=== PATIENT | female | born 1940 | race Two or more races ===

== ENCOUNTER 2018-07-14 14:59 | Emergency (ER) | payer OTHER ==
[~2018-07-14] VITALS: Ht 165.1 cm; Wt 78.9 kg
[~2018-07-14 14:59] MED LIST: ALDACTONE25 MG PO; ASPIR-LOW81 MG; CEFTIN250 MG/5 M PO; CITALOPRAM HBR40 MG; DALMANE30 MG PO; GLUCOTROL10 MG; IMDUR30 MG; INTEGRA PLUS C1 EACH PO; ISOSORBIDE MONO30 MG PO; LANTUS100 U/ML; LANTUS100 U/ML SQ; LEVOTHROID50 MCG; LEVOXYL25 MCG PO; LIPITOR40 MG; METAMUCIL283 GM; METFORMIN HCL1000 MG PO; MICRONASE5 MG NGT; NEURONTIN300 MG; OXYBUTYNIN CHLOR5 MG; PEPCID40 MG PO; PLAVIX75 MG PO; QUINAPRIL HCL20 MG; QUINAPRIL HCL20 MG PO; SPIRONOLACTONE50 MG PO; SYNTHROID50 MCG; TRAZODONE HCL150 MG PO; VITAMIN B-650 M1; VYTORIN 10/40 T1 TAB PO; ZETIA10 MG; ZOFRAN4 MG PO
[2018-07-14] MEDS ORDERED: ZITHROMAX500 MG PO (21:32)
== END 2018-07-14 22:07 | disposition home or self-care (01) ==
LOC: ER 14:59
DX: J40 Bronchitis, not specified as acute or chronic (principal); J11.1 Influenza due to unidentified influenza virus with other respiratory manifestations

== ENCOUNTER 2019-03-30 22:12 | Emergency (ER) | payer OTHER ==
[~2019-03-30] VITALS: Ht 170.2 cm; Wt 68.0 kg
[~2019-03-30 22:12] MED LIST changes: +ZITHROMAX500 MG PO
== END 2019-03-30 23:34 | disposition home or self-care (01) ==
LOC: ER 22:12
DX: M54.5 Low back pain (principal)

== ENCOUNTER 2019-06-07 19:31 | Emergency (ER) | payer OTHER ==
[~2019-06-07] VITALS: Ht 152.4 cm; Wt 79.4 kg
== END 2019-06-07 23:10 ==
LOC: ER 19:31
DX: R53.1 Weakness (principal)

== ENCOUNTER 2019-07-23 08:05 | Outpatient (CLI) | payer OTHER | END 2019-07-23 08:11 | disposition home or self-care (01) | LOC: RX STUDY 08:05 | DX: R13.19 Other dysphagia (principal) ==

== ENCOUNTER 2019-11-08 14:29 | Emergency (ER) | payer OTHER ==
[~2019-11-08] VITALS: Ht 165.1 cm; Wt 78.9 kg
== END 2019-11-08 19:26 | disposition home or self-care (01) ==
LOC: ER 14:29
DX: M48.8X6 Other specified spondylopathies, lumbar region (principal); M25.551 Pain in right hip; M79.604 Pain in right leg; M54.5 Low back pain; S70.01XS Contusion of right hip, sequela; W18.09XS Striking against other object with subsequent fall, sequela

== ENCOUNTER 2019-12-10 20:02 | Inpatient (IN) | payer OTHER ==
[~2019-12-10] VITALS: Ht 165.1 cm; Wt 77.6 kg
--- NOTE | 2019-12-10 20:13 | NUR ---
FAMILIAR REFIERE AZUCAR BAJA SE JED S/V Y SE UBICA EN AREA DE OBSERVACION
--- NOTE | 2019-12-10 20:36 | NUR ---
SE ORIENTA SOBRE EL TX. SE EXTRAEN MUESTRAS DE ANDREA BAJO MEDIDAS ASEPTICAS SE ROTULAN Y ENVIAN AL LABORATORIO. SE CANALIZA Y ADMINISTRAN MEDICAMENTO MAX ORDEN MEDICA.
--- NOTE | 2019-12-11 08:30 | NUR ---
PACIENTE ALERTA Y ORIENTADA EN COMPANIA DE FAMILIAR CON POCA MOVILIDAD. SE OBSERVA IVF'S PATENTE HAIR DE EDEMA Y ENROJECIMIENTO BAJANDO UN .9NSS @125ML/HR. PACIENTE CON BUEN PATRON RESPIRATORIO Y PIEL TIBIA AL TACTO. PENDIENTE CONSULTA CON DR. TRAVIS DOS SANTOS.
[2019-12-17] MEDS ORDERED: CEFDINIR300 MG PO (15:36)
== END 2019-12-17 16:45 | disposition home or self-care (01) | DRG 698 ==
LOC: ER 20:02 → MEDJ 12-11 13:53
PROVIDERS: ADMIT Internal Medicine
PROC: 0T9B70Z Drainage of Bladder with Drainage Device, Via Natural or Artificial Opening (ICD-10-PCS; 2019-12-11)
PROC: BT43ZZZ Ultrasonography of Bilateral Kidneys (ICD-10-PCS; 2019-12-13)
PROC: B246ZZZ Ultrasonography of Right and Left Heart (ICD-10-PCS; principal; 2019-12-14)
PROC: 4A12X4Z Monitoring of Cardiac Electrical Activity, External Approach (ICD-10-PCS; 2019-12-14)
DX: E11.22 Type 2 diabetes mellitus with diabetic chronic kidney disease (principal); I50.41 Acute combined systolic (congestive) and diastolic (congestive) heart failure; I25.810 Atherosclerosis of coronary artery bypass graft(s) without angina pectoris; F32.1 Major depressive disorder, single episode, moderate; E87.2 Acidosis; G72.81 Critical illness myopathy; N39.0 Urinary tract infection, site not specified; I13.2 Hypertensive heart and chronic kidney disease with heart failure and with stage 5 chronic kidney disease, or end stage renal disease; N18.6 End stage renal disease; E86.0 Dehydration; E87.8 Other disorders of electrolyte and fluid balance, not elsewhere classified; I70.0 Atherosclerosis of aorta; I08.1 Rheumatic disorders of both mitral and tricuspid valves; N20.0 Calculus of kidney; B96.1 Klebsiella pneumoniae [K. pneumoniae] as the cause of diseases classified elsewhere; N17.8 Other acute kidney failure; E03.8 Other specified hypothyroidism; N39.8 Other specified disorders of urinary system; R31.0 Gross hematuria; E87.6 Hypokalemia; E66.01 Morbid (severe) obesity due to excess calories; E11.40 Type 2 diabetes mellitus with diabetic neuropathy, unspecified; Z79.4 Long term (current) use of insulin

== ENCOUNTER 2019-12-30 11:04 | Emergency (ER) | payer OTHER ==
[~2019-12-30] VITALS: Ht 165.1 cm; Wt 77.6 kg
[~2019-12-30 11:04] MED LIST changes: +CEFDINIR300 MG PO
== END 2019-12-30 16:27 | disposition home or self-care (01) ==
LOC: ER 11:04
DX: M51.17 Intervertebral disc disorders with radiculopathy, lumbosacral region (principal)

== ENCOUNTER 2021-01-11 11:53 | Emergency (ER) | payer OTHER ==
[~2021-01-11] VITALS: Ht 165.1 cm; Wt 78.0 kg
[2021-01-11] MEDS ORDERED: LEVOXYL75 MCG PO (16:42)
== END 2021-01-11 17:07 | disposition home or self-care (01) ==
LOC: ER 11:53 → CPU-OBS 12:42 → ER 12:42
DX: I11.0 Hypertensive heart disease with heart failure (principal); I50.9 Heart failure, unspecified; R53.83 Other fatigue; R53.1 Weakness; E03.8 Other specified hypothyroidism; Z03.818 Encounter for observation for suspected exposure to other biological agents ruled out

== ENCOUNTER 2021-03-21 13:02 | Emergency (ER) | payer OTHER ==
[~2021-03-21] VITALS: Ht 165.1 cm; Wt 82.6 kg
[~2021-03-21 13:02] MED LIST changes: +LEVOXYL75 MCG PO
== END 2021-03-21 18:15 | disposition home or self-care (01) ==
LOC: ER 13:02
DX: K52.89 Other specified noninfective gastroenteritis and colitis (principal); R10.13 Epigastric pain; R11.11 Vomiting without nausea; R19.7 Diarrhea, unspecified

== ENCOUNTER 2021-05-04 10:18 | Emergency (ER) | payer OTHER ==
[~2021-05-04] VITALS: Ht 167.6 cm; Wt 83.5 kg
== END 2021-05-04 14:23 | disposition home or self-care (01) ==
LOC: ER 10:18 → CPU-OBS 10:43 → ER 14:23
DX: I16.1 Hypertensive emergency (principal); I10 Essential (primary) hypertension; R06.02 Shortness of breath; R53.83 Other fatigue; Z03.818 Encounter for observation for suspected exposure to other biological agents ruled out

== ENCOUNTER 2021-05-09 11:06 | Outpatient (CLI) | payer OTHER | END 2021-05-09 11:12 | disposition home or self-care (01) | LOC: TOM 11:06 | PROVIDERS: ATTEND Specialist/Technologist, Other Nephrology | DX: I12.9 Hypertensive chronic kidney disease with stage 1 through stage 4 chronic kidney disease, or unspecified chronic kidney disease (principal); N18.32 Chronic kidney disease, stage 3b; N20.0 Calculus of kidney; N13.71 Vesicoureteral-reflux without reflux nephropathy ==

== ENCOUNTER 2021-06-26 14:38 | Emergency (ER) | payer OTHER ==
[~2021-06-26] VITALS: Ht 167.6 cm; Wt 80.7 kg
[2021-06-26] MEDS ORDERED: SURFAK240 M1 PO (21:27)
[2021-06-26] MEDS ORDERED: POLY119PG PO (21:27)
== END 2021-06-26 21:33 | disposition home or self-care (01) ==
LOC: ER 14:38
DX: K59.09 Other constipation (principal)

== ENCOUNTER 2021-06-29 12:41 | Outpatient (CLI) | payer OTHER ==
[~2021-06-29 12:41] MED LIST changes: +POLY119PG PO; +SURFAK240 M1 PO
== END 2021-06-29 12:45 | disposition home or self-care (01) ==
LOC: SONOGRAMA 12:41 → MAMO-SONO 15:00
PROVIDERS: ATTEND Urology
DX: N20.0 Calculus of kidney (principal)

== ENCOUNTER 2022-03-26 10:32 | Outpatient (CLI) | payer OTHER | END 2022-03-26 10:33 | disposition home or self-care (01) | LOC: RAD 10:32 | PROVIDERS: ATTEND Internal Medicine | DX: I11.0 Hypertensive heart disease with heart failure (principal) ==

== ENCOUNTER → 2022-03-26 10:53 | Outpatient (CLI) | payer OTHER | END | disposition home or self-care (01) | LOC: LAB 10:53 | PROVIDERS: ATTEND Internal Medicine | DX: E11.51 Type 2 diabetes mellitus with diabetic peripheral angiopathy without gangrene (principal); I10 Essential (primary) hypertension; E03.9 Hypothyroidism, unspecified; E78.5 Hyperlipidemia, unspecified; K55.20 Angiodysplasia of colon without hemorrhage; R30.9 Painful micturition, unspecified; Z13.29 Encounter for screening for other suspected endocrine disorder; E55.9 Vitamin D deficiency, unspecified; E05.90 Thyrotoxicosis, unspecified without thyrotoxic crisis or storm ==

== ENCOUNTER 2022-04-06 07:18 | Outpatient (CLI) | payer OTHER | END 2022-04-06 07:20 | disposition home or self-care (01) | LOC: NUCLEAR 07:18 | PROVIDERS: ATTEND Internal Medicine Cardiovascular Disease | DX: I25.119 Atherosclerotic heart disease of native coronary artery with unspecified angina pectoris (principal); E11.9 Type 2 diabetes mellitus without complications; I11.9 Hypertensive heart disease without heart failure | CPT/HCPCS: 78452; 93017; A9500; J0153 ==

== ENCOUNTER 2023-12-18 11:04 | Emergency (ER) | payer OTHER ==
[~2023-12-18] VITALS: Ht 160 cm; Wt 78.9 kg
[2023-12-18] MEDS ORDERED: GLIPIZIDE XL5 MG (11:45)
[2023-12-18] MEDS ORDERED: XANAX0.25 MG (11:47)
[2023-12-18] MEDS ORDERED: DUI500 PO (12:18)
== END 2023-12-18 13:58 | disposition home or self-care (01) ==
LOC: ER 11:05
DX: S60.418A Abrasion of other finger, initial encounter (principal); W26.0XXA Contact with knife, initial encounter; Y93.89 Activity, other specified; Y92.018 Other place in single-family (private) house as the place of occurrence of the external cause; L08.9 Local infection of the skin and subcutaneous tissue, unspecified
CPT/HCPCS: 90471; 90714; 96372; 99284; J0696; J1885

== ENCOUNTER 2024-02-16 18:57 | Emergency (ER) | payer OTHER ==
[~2024-02-16] VITALS: Ht 165.1 cm; Wt 82.6 kg
[~2024-02-16 18:57] MED LIST changes: +DUI500 PO; +GLIPIZIDE XL5 MG; +XANAX0.25 MG
[2024-02-16 21:21] LABS: HEMATOCRIT 34.2 % (36.0-45.00); HEMOGLOBIN 11.2 g/dL (12.0-15.00); MEAN CELL VOLUME 75.9 fL (80.00-100.00); MEAN CORPUSCULAR HEMOGLOBIN 24.8 pg (27.00-32.0); MEAN CORPUSCULAR HGB CONC 32.7 g/dl (32.0-36.0); PLATELET COUNT 301 K/uL (150-450); RED BLOOD COUNT 4.51 M/uL (4.00-6.00); RED CELL DISTRIBUTION WIDTH 16.7 % (11.5-14.5)
[2024-02-16 21:58] LABS: ALBUMIN 3.6 gm/dL (3.4-5.0); BILIRUBIN TOTAL 0.41 mg/dL (0.3-1.2); CALCIUM 9.9 mg/dL (8.5-10.1); CREATININE SERUM 1.08 mg/dL (0.55-1.02); GFR 48.45; GLOBULINA 4.3 G/DL (2.4-3.5); POTASSIUM 4.26 mEq/L (3.5-5.1); TOTAL PROTEIN 7.9 gm/dL (6.4-8.2)
[2024-02-16 23:44] LABS: ABG PH 7.483 (7.35-7.45); ABG PO2 102.6 mmHg (80-100); ABG pCO2 34.2 mmHg (35-45); BASE EXCESS 2.1 mmol/l; SaO2 98.4 %; Tco2 26.1 mmol/l
[2024-02-16 23:45] LABS: allen test SATISFACTORY; o2 21 %; puncture site RADIAL LEFT
== END 2024-02-16 23:03 | disposition home or self-care (01) ==
LOC: ER 18:57
PROVIDERS: General Practice
DX: R53.1 Weakness (principal); R53.81 Other malaise; Z20.822 Contact with and (suspected) exposure to COVID-19; I10 Essential (primary) hypertension

== ENCOUNTER 2024-03-13 17:58 | Emergency (ER) | payer OTHER ==
[~2024-03-13] VITALS: Ht 162.6 cm; Wt 78.0 kg
[2024-03-13] MEDS ORDERED: RYBELSUS3 MG PO (18:23)
[2024-03-13] MEDS ORDERED: [UNRECOGNIZED DRUG - OTHER] MC (18:23)
[2024-03-13] MEDS ORDERED: 0.9 % SODIUM CHLORIDE 1,000 ML IV SCH (21:45)
[2024-03-13] MEDS ORDERED: INSULIN REGULAR, HUMAN 1,000 UNIT/10 ML UNITS IV ONE (21:45)
[2024-03-13 21:58] LABS: HEMATOCRIT 40.6 % (36.0-45.00); HEMOGLOBIN 13.4 g/dL (12.0-15.00); MEAN CORPUSCULAR HEMOGLOBIN 25.1 pg (27.00-32.0); PLATELET COUNT 239 K/uL (150-450); RED BLOOD COUNT 5.34 M/uL (4.00-6.00); RED CELL DISTRIBUTION WIDTH 16.6 % (11.5-14.5)
[2024-03-13 22:13] LABS: PH,URINE 5.5 (5.0-8.0); URINE APPEARANCE Turbid; URINE BILIRRUBIN Negative (NEGATIVE); URINE BLOOD Moderate; URINE COLOR Yellow; URINE LEUKOCYTE Moderate; URINE NITRATE Negative; URINE PROTEIN 30 (NEGATIVE); URINE UROBILINOGEN 0.2 E.U./dl
[2024-03-13 22:17] LABS: URINE BACTERIA 8996.2 uL (0.0-1933); URINE EPITHELIAL CELLS 170.2 uL (0.0-38.8); URINE RBC 29.3 uL (0.0-20.8)
[2024-03-13 22:23] LABS: ALBUMIN 4.2 gm/dL (3.4-5.0); BILIRUBIN TOTAL 0.46 mg/dL (0.3-1.2); CALCIUM 9.8 mg/dL (8.5-10.1); CREATININE SERUM 1.72 mg/dL (0.55-1.02); GFR 28.32; GLOBULINA 4.9 G/DL (2.4-3.5); POTASSIUM 4.93 mEq/L (3.5-5.1); TOTAL PROTEIN 9.1 gm/dL (6.4-8.2)
[2024-03-13 22:28] LABS: URINE GLUCOSE >=1000 MG/DL (NEGATIVE); URINE WBC > 5548.3 uL (0.0-23.2)
[2024-03-13] MEDS ORDERED: INSULIN REGULAR, HUMAN 1,000 UNIT/10 ML UNITS SUBCUTANEO ONE (22:45)
[2024-03-13] MEDS ORDERED: MACRODANTIN100 M1 PO (23:48)
== END 2024-03-14 01:07 | disposition home or self-care (01) ==
LOC: ER 17:59
PROVIDERS: General Practice
DX: N39.0 Urinary tract infection, site not specified (principal); E11.65 Type 2 diabetes mellitus with hyperglycemia; Z79.4 Long term (current) use of insulin; Z79.84 Long term (current) use of oral hypoglycemic drugs; I10 Essential (primary) hypertension
CPT/HCPCS: 36415; 96365; 96366; 99284; J1815; J3490

== ENCOUNTER 2024-03-17 07:32 | Outpatient (CLI) | payer OTHER ==
[~2024-03-17 07:32] MED LIST changes: +MACRODANTIN100 M1 PO; +RYBELSUS3 MG PO; +[UNRECOGNIZED DRUG - OTHER] MC
== END 2024-03-17 07:33 | disposition home or self-care (01) ==
LOC: NUCLEAR 07:32
PROVIDERS: ATTEND Internal Medicine
DX: I20.9 Angina pectoris, unspecified (principal); R06.00 Dyspnea, unspecified
CPT/HCPCS: 78452; 93017; A9500

== ENCOUNTER 2024-06-22 11:25 | Outpatient (CLI) | payer OTHER | END 2024-06-22 11:40 | disposition home or self-care (01) | LOC: RAD 11:25 | PROVIDERS: ATTEND Internal Medicine Gastroenterology | DX: K59.00 Constipation, unspecified (principal) ==

== ENCOUNTER 2024-10-08 08:28 | Outpatient (CLI) | payer OTHER | END 2024-10-08 08:33 | disposition home or self-care (01) | LOC: SONOGRAMA 08:28 | PROVIDERS: ATTEND Internal Medicine Gastroenterology | DX: R10.9 Unspecified abdominal pain (principal) ==

== ENCOUNTER 2024-10-28 07:20 | Outpatient (CLI) | payer OTHER | END 2024-10-28 07:21 | disposition home or self-care (01) | LOC: NUCLEAR 07:20 | PROVIDERS: ATTEND Internal Medicine Gastroenterology | DX: E11.43 Type 2 diabetes mellitus with diabetic autonomic (poly)neuropathy (principal) | CPT/HCPCS: 78264; A9541 ==

== ENCOUNTER → 2025-02-07 | Emergency (ER) | payer OTHER ==
[~2025-02-07] VITALS: Ht 167.6 cm; Wt 75.3 kg
[~2025-02-07] MED LIST changes: +MECLIZINE HCL 25 MG TABLET PO STA
[2025-02-07 18:11] LABS: HEMATOCRIT 36.5 % (36.0-45.00); MEAN CELL VOLUME 76.7 fL (80.00-100.00); MEAN CORPUSCULAR HEMOGLOBIN 25.2 pg (27.00-32.0); MEAN CORPUSCULAR HGB CONC 32.9 g/dl (32.0-36.0); PLATELET COUNT 277 K/uL (150-450); RED BLOOD COUNT 4.76 M/uL (4.00-6.00); RED CELL DISTRIBUTION WIDTH 16.3 % (11.5-14.5)
[2025-02-07 18:43] LABS: BILIRUBIN TOTAL 0.35 mg/dL (0.3-1.2); CALCIUM 9.8 mg/dL (8.5-10.1); CREATININE SERUM 1.54 mg/dL (0.55-1.02); GFR 32.09; GLOBULINA 5.4 G/DL (2.4-3.5); POTASSIUM 4.47 mEq/L (3.5-5.1); TOTAL PROTEIN 9.4 gm/dL (6.4-8.2)
== END | disposition left against medical advice (07) ==
LOC: ER 12:44
PROVIDERS: General Practice
DX: R42 Dizziness and giddiness (principal)

== ENCOUNTER → 2025-02-08 | Emergency (ER) | payer OTHER ==
[~2025-02-08] VITALS: Ht 162.6 cm; Wt 72.6 kg
[~2025-02-08] MED LIST changes: +MECLIZINE HCL 25 MG TABLET PO ONE; -MECLIZINE HCL 25 MG TABLET PO STA
== END | disposition home or self-care (01) ==
LOC: ER 07:39
DX: R42 Dizziness and giddiness (principal); R51.9 Headache, unspecified; M54.9 Dorsalgia, unspecified; I10 Essential (primary) hypertension; E03.8 Other specified hypothyroidism; E11.9 Type 2 diabetes mellitus without complications; Z79.4 Long term (current) use of insulin; Z79.84 Long term (current) use of oral hypoglycemic drugs

== ENCOUNTER 2025-03-04 16:07 | Inpatient (IN) | payer OTHER ==
[~2025-03-04] VITALS: Ht 160 cm; Wt 73.0 kg
[~2025-03-04 16:07] MED LIST changes: -MECLIZINE HCL 25 MG TABLET PO ONE
--- NOTE | 2025-03-04 17:44 | NUR ---
PTE ALERTA Y ORIENTADA X3 REFIERE VENIR A MARZENA POR REFERIDO DEL DR JOANA FARIA EL CUAL ENTIENDE QUE LA PTE SE ENCUENTRA DESHIDRATADA Y POSIBLEMENTE CHF PTE TIENE A LA MANO REFERIDO MEDICO CON VARIAS ORDENES. PTE EXPRESA SENTIR MAREOS Y DEBILIDAD. SE MIDEN S/V Y UBICA.
--- NOTE | 2025-03-04 18:09 | NUR ---
SE REALIZA EKG Y EL MISMO ES EVALUADO POR LA DRA BENZ Y LA MISAM REFIERE QUE SE CONECTE A PTE A MONITOR CARDIACO.
[2025-03-04 18:56] LABS: ABG PH 7.547 (7.35-7.45); ABG PO2 93.4 mmHg (80-100); ABG pCO2 28.3 mmHg (35-45); BASE EXCESS 2.7 mmol/l; SaO2 98.3 %; Tco2 24.9 mmol/l
--- NOTE | 2025-03-04 19:11 | NUR ---
SE ORIENTA PTE SOBRE TX, REFIERE ENTENDER Y ACEPTAR. SE LE JED MUESTRAS DE LABORATORIO, RT GOULD YOMAIRA MUESTRA DE ABG, TODO BAJO MEDIDAS ASEPTICAS. PTE ENTREGA MUESTRA DE U/A Y PERSONAL DE ESCOLTA TRASLADA PTE A XRAYS.
[2025-03-04 19:13] LABS: HEMATOCRIT 32.8 % (36.0-45.00); HEMOGLOBIN 10.8 g/dL (12.0-15.00); MEAN CELL VOLUME 76.1 fL (80.00-100.00); MEAN CORPUSCULAR HGB CONC 32.9 g/dl (32.0-36.0); PLATELET COUNT 284 K/uL (150-450); RED BLOOD COUNT 4.31 M/uL (4.00-6.00); RED CELL DISTRIBUTION WIDTH 16.1 % (11.5-14.5); URINE APPEARANCE Turbid; URINE BILIRRUBIN Negative (NEGATIVE); URINE BLOOD Small; URINE COLOR Yellow; URINE GLUCOSE Negative (NEGATIVE); URINE KETONE Trace (NEGATIVE); URINE LEUKOCYTE Large; URINE NITRATE Negative
[2025-03-04 19:16] LABS: URINE EPITHELIAL CELLS 90.8 uL (0.0-38.8); URINE RBC 9.4 uL (0.0-20.8); URINE WBC 4989.3 uL (0.0-23.2)
[2025-03-04 19:33] LABS: URINE BACTERIA > 9821.5 uL (0.0-1933); URINE CAST 0.29 uL (0.0-1.40); URINE PROTEIN 100 (NEGATIVE)
[2025-03-04 19:35] LABS: CALCIUM 9.5 mg/dL (8.5-10.1); CREATININE SERUM 1.19 mg/dL (0.55-1.02); GFR 43.21; POTASSIUM 3.99 mEq/L (3.5-5.1)
[2025-03-04 19:37] LABS: INR 1.05; PARTIAL THROMBOPLASTIN TIME 27.9 SECONDS (22.0-34.0); PROTHROMBIN TIME 11.4 SECONDS (9.0-11.5)
[2025-03-04 19:53] LABS: allen test SATISFACTORY; o2 21 %; puncture site RADIAL LEFT
[2025-03-04] MEDS ORDERED: CEFTRIAXONE SODIUM 2,000 MG VIAL IV ONE (20:15)
[2025-03-04] MEDS ORDERED: CEFTRIAXONE SODIUM 2,000 MG VIAL ONE (20:35)
[2025-03-04] MEDS ORDERED: IPRATROPIUM BROMIDE 0.5 MG/2.5 ML AMPUL.NEB IH SCH (21:09)
[2025-03-04] MEDS ORDERED: 0.9 % SODIUM CHLORIDE 1,000 ML IV SCH (21:15)
[2025-03-04] MEDS ORDERED: ACETAMINOPHEN 500 MG GEL..CAP PO PRN (21:15)
[2025-03-04] MEDS ORDERED: IPRATROPIUM BROMIDE 0.5 MG/2.5 ML AMPUL.NEB IH ONE (22:23)
[2025-03-04] MEDS ORDERED: LOSARTAN POTASSIUM 50 MG TABLET PO SCH (23:24)
[2025-03-05 00:32] VITALS: BP 116/61; O2SAT 97
[2025-03-05 05:10] VITALS: BP 112/51; O2SAT 96
[2025-03-05] MEDS ORDERED: LEVOTHYROXINE SODIUM 50 MCG TABLET PO SCH (06:00)
[2025-03-05 08:00] VITALS: BP 127/76; O2SAT 96
[2025-03-05] MEDS ORDERED: CEFTRIAXONE SODIUM 2,000 MG in 0.9 % SODIUM CHLORIDE 100 ML IV SCH (09:00)
[2025-03-05] MEDS ORDERED: FAMOTIDINE/PF 20 MG in 0.9 % SODIUM CHLORIDE 8 ML IV PUSH SCH (09:00)
[2025-03-05] MEDS ORDERED: ATORVASTATIN CALCIUM 20 MG TABLET PO SCH (09:00)
[2025-03-05] MEDS ORDERED: CLOPIDOGREL BISULFATE 75 MG TABLET PO SCH (09:00)
[2025-03-05 16:00] VITALS: BP 160/78; O2SAT 99
[2025-03-05] MEDS ORDERED: ALPRAzolam 0.25 MG TABLET PO SCH (21:00)
[2025-03-06 02:51] VITALS: BP 113/69; O2SAT 95
[2025-03-06 07:50] LABS: ALBUMIN 3.1 gm/dL (3.4-5.0); BILIRUBIN TOTAL 0.28 mg/dL (0.3-1.2); CREATININE SERUM 1.09 mg/dL (0.55-1.02); GFR 47.82; GLOBULINA 3.8 G/DL (2.4-3.5); POTASSIUM 4.17 mEq/L (3.5-5.1); TOTAL PROTEIN 6.9 gm/dL (6.4-8.2)
[2025-03-06 08:05] LABS: HEMATOCRIT 30.1 % (36.0-45.00); HEMOGLOBIN 9.8 g/dL (12.0-15.00); MEAN CORPUSCULAR HEMOGLOBIN 24.9 pg (27.00-32.0); MEAN CORPUSCULAR HGB CONC 32.7 g/dl (32.0-36.0); PLATELET COUNT 251 K/uL (150-450); RED BLOOD COUNT 3.95 M/uL (4.00-6.00); RED CELL DISTRIBUTION WIDTH 15.9 % (11.5-14.5)
[2025-03-06] MEDS ORDERED: IRON/V.C/V.B12/FOLIC A/VIT. E 1 CAPL CAPLET PO SCH (09:00)
[2025-03-06] MEDS ORDERED: EPOETIN ALFA-EPBX 10,000 UNIT/ML VIAL (Retacrit) SUBCUTANEO SCH (09:00)
[2025-03-06 09:06] VITALS: BP 119/66; O2SAT 98
[2025-03-06 16:00] VITALS: BP 148/77; O2SAT 98
[2025-03-07 00:56] VITALS: BP 146/81; O2SAT 97
[2025-03-07 08:47] VITALS: BP 132/72; O2SAT 95
[2025-03-07 16:00] VITALS: BP 152/78; O2SAT 98
[2025-03-08 01:42] VITALS: BP 131/75; O2SAT 97
[2025-03-08 08:41] VITALS: BP 122/64
[2025-03-08 12:38] LABS: HEMATOCRIT 28.9 % (36.0-45.00); MEAN CELL VOLUME 76.1 fL (80.00-100.00); MEAN CORPUSCULAR HGB CONC 32.8 g/dl (32.0-36.0); PLATELET COUNT 227 K/uL (150-450); RED CELL DISTRIBUTION WIDTH 15.7 % (11.5-14.5)
[2025-03-08 12:53] LABS: HEMOGLOBIN 9.5 g/dL (12.0-15.00)
[2025-03-08 16:16] VITALS: BP 184/92; O2SAT 97
[2025-03-08 18:53] VITALS: BP 142/83
[2025-03-09 01:07] VITALS: BP 144/77; O2SAT 96
[2025-03-09 05:09] LABS: CALCIUM 9.2 mg/dL (8.5-10.1); CREATININE SERUM 0.79 mg/dL (0.55-1.02); GFR 69.33; POTASSIUM 3.68 mEq/L (3.5-5.1)
[2025-03-09] MEDS ORDERED: FAMOTIDINE/PF 20 MG/2 ML VIAL ONE (08:20)
[2025-03-09 08:25] VITALS: BP 114/54
== END 2025-03-09 11:37 | disposition home or self-care (01) | DRG 690 ==
LOC: ER 16:09 → SURG 21:39 → SEC-K 21:39 → SURG 03-05 04:33 → MEDI 03-05 15:23
PROVIDERS: Emergency Medicine; Internal Medicine; ADMIT Student in an Organized Health Care Education/Training Program; ATTEND Student in an Organized Health Care Education/Training Program
PROC: B246ZZZ Ultrasonography of Right and Left Heart (ICD-10-PCS; principal; 2025-03-04)
PROC: 3E0F7GC Introduction of Other Therapeutic Substance into Respiratory Tract, Via Natural or Artificial Opening (ICD-10-PCS; 2025-03-04)
DX: N39.0 Urinary tract infection, site not specified (principal); N17.8 Other acute kidney failure; I11.0 Hypertensive heart disease with heart failure; I50.9 Heart failure, unspecified; E03.9 Hypothyroidism, unspecified; R06.02 Shortness of breath

== ENCOUNTER 2025-03-15 13:25 | Outpatient (CLI) | payer OTHER | END 2025-03-15 13:31 | disposition home or self-care (01) | LOC: RAD 13:25 | PROVIDERS: ATTEND Internal Medicine | DX: R06.00 Dyspnea, unspecified (principal) ==

== ENCOUNTER 2025-06-09 19:13 | Emergency (ER) | payer OTHER ==
[~2025-06-09] VITALS: Ht 160 cm; Wt 75.3 kg
[2025-06-09 20:38] LABS: BASO % 0.4 % (0.1-1.2); EOS # 0.09 (0.04-0.54); EOS % 0.9 % (0.7-7.0); LYMPH # 3.49 (1.18-3.74); LYMPH % 36.4 % (19.3-53.1); MEAN PLATELET VOLUME 10.70 fl (9.4-12.4); MONO # 1.14 (0.24-0.82); MONO % 11.9 % (4.7-12.5); NEUT # 4.81 (1.56-6.13); NEUT % 50.1 % (34.0-71.1); RED CELL DISTRIBUTION WIDTH 16.1 % (11.6-14.4)
[2025-06-09 20:45] LABS: COVID-19 AG NEGATIVE (NEGATIVE)
[2025-06-09 21:02] LABS: INR 1.05
[2025-06-09 21:11] LABS: ALT/SGPT 20.0 U/L (12-78); AST/SGOT 13.0 U/L (15-37)
[2025-06-09 21:12] LABS: BILIRUBIN TOTAL 0.34 mg/dL (0.3-1.2); GFR 29.43
[2025-06-09 21:19] LABS: BUN CREA RATIO 18.0 (7.0-25.0); CREATININE SERUM 1.66 mg/dL (0.55-1.02)
[2025-06-09 21:20] LABS: GLOBULINA 4.5 G/DL (2.4-3.5)
[2025-06-09 21:21] LABS: OSMOLALITY SERUM 286.0 MOSM/KG (275-295)
[2025-06-09 21:21] LABS: ABG PH 7.410 (7.35-7.45); ABG PO2 80.6 mmHg (80-100); BICARBONATE 24.5 mmol/l (23-25)
[2025-06-09 21:22] LABS: URINE APPEARANCE Turbid; URINE BILIRRUBIN Negative (NEGATIVE); URINE BLOOD Small; URINE COLOR Yellow; URINE KETONE Negative (NEGATIVE); URINE LEUKOCYTE Moderate; URINE NITRATE Negative; URINE UROBILINOGEN 0.2 E.U./dl
[2025-06-09 21:23] LABS: URINE BACTERIA 9448.7 uL (0.0-1933); URINE CAST 1.46 uL (0.0-1.40); URINE EPITHELIAL CELLS 117.3 uL (0.0-38.8); URINE RBC 9.3 uL (0.0-20.8); URINE WBC 2560.5 uL (0.0-23.2)
[2025-06-09 21:27] LABS: GLUCOSE FASTING 515.0 mg/dL (65-100)
[2025-06-09] MEDS ORDERED: 0.9 % SODIUM CHLORIDE 500 ML IV ONE (21:30)
[2025-06-09] MEDS ORDERED: INSULIN REGULAR, HUMAN 1,000 UNIT/10 ML UNITS IV ONE ×2 (21:30→23:15)
[2025-06-09 21:33] LABS: o2 21 %
[2025-06-09 21:42] LABS: URINE GLUCOSE >=1000 MG/DL (NEGATIVE); URINE PROTEIN 100 (NEGATIVE)
[2025-06-09] MEDS ORDERED: INSULIN GLARGINE,HUM.REC.ANLOG 1,000 UNITS/10 ML UNITS SUBCUTANEO ONE (23:15)
[2025-06-09] MEDS ORDERED: PEPCID AC20 MG PO (23:51)
[2025-06-09] MEDS ORDERED: BACTRIM DS TAB1 EACH PO (23:51)
== END 2025-06-10 00:07 | disposition home or self-care (01) ==
LOC: ER 19:20
PROVIDERS: General Practice
DX: N39.0 Urinary tract infection, site not specified (principal); R06.02 Shortness of breath; Z20.822 Contact with and (suspected) exposure to COVID-19; I10 Essential (primary) hypertension; E03.8 Other specified hypothyroidism; E11.9 Type 2 diabetes mellitus without complications; Z79.84 Long term (current) use of oral hypoglycemic drugs
CPT/HCPCS: 71046; 82803; 93005; 96365; 96366; 99283; J1815 ×2; J7042

== ENCOUNTER 2025-09-11 14:56 | Emergency (ER) | payer OTHER ==
[~2025-09-11] VITALS: Ht 162.6 cm; Wt 83.5 kg
[~2025-09-11 14:56] MED LIST changes: +BACTRIM DS TAB1 EACH PO; +PEPCID AC20 MG PO
[2025-09-11] MEDS ORDERED: 0.9 % SODIUM CHLORIDE 1,000 ML IV STA (17:06)
[2025-09-11] MEDS ORDERED: FAMOTIDINE/PF 20 MG/2 ML VIAL IV STA (17:07)
[2025-09-11] MEDS ORDERED: ONDANSETRON HCL 2 MG/ML VIAL IV STA (17:07)
[2025-09-11] MEDS ORDERED: INSULIN REGULAR, HUMAN 1,000 UNIT/10 ML UNITS IV STA ×3 (17:07→23:16)
[2025-09-11] MEDS ORDERED: ONDANSETRON HCL 2 MG/ML VIAL ONE (17:12)
[2025-09-11] MEDS ORDERED: FAMOTIDINE/PF 20 MG/2 ML VIAL ONE (17:12)
[2025-09-11 18:16] LABS: BASO % 0.6 % (0.1-1.2); EOS # 0.05 (0.04-0.54); EOS % 0.7 % (0.7-7.0); LYMPH # 3.10 (1.18-3.74); LYMPH % 44.5 % (19.3-53.1); MEAN PLATELET VOLUME 11.70 fl (9.4-12.4); MONO # 0.81 (0.24-0.82); MONO % 11.6 % (4.7-12.5); NEUT # 2.94 (1.56-6.13); NEUT % 42.2 % (34.0-71.1); RED CELL DISTRIBUTION WIDTH 14.8 % (11.6-14.4)
[2025-09-11 18:45] LABS: BUN CREA RATIO 10.0 (7.0-25.0); CREATININE SERUM 1.54 mg/dL (0.55-1.02); GFR 32.09
[2025-09-11 19:26] LABS: OSMOLALITY SERUM 281.0 MOSM/KG (275-295)
[2025-09-11 19:27] LABS: GLUCOSE FASTING 518.0 mg/dL (65-100)
[2025-09-11] MEDS ORDERED: INSULIN REGULAR, HUMAN 1,000 UNIT/10 ML UNITS IV ONE (19:45)
[2025-09-11 20:24] LABS: URINE APPEARANCE Cloudy; URINE BILIRRUBIN Negative (NEGATIVE); URINE BLOOD Small; URINE COLOR Yellow; URINE KETONE Negative (NEGATIVE); URINE LEUKOCYTE Small; URINE NITRATE Negative; URINE UROBILINOGEN 0.2 E.U./dl
[2025-09-11 20:28] LABS: URINE BACTERIA 2535.3 uL (0.0-1933); URINE EPITHELIAL CELLS 18.9 uL (0.0-38.8); URINE RBC 8.3 uL (0.0-20.8); URINE WBC 1899.8 uL (0.0-23.2)
[2025-09-11 21:25] LABS: URINE CAST 0.58 uL (0.0-1.40); URINE GLUCOSE >=1000 MG/DL (NEGATIVE); URINE PROTEIN 100 (NEGATIVE)
[2025-09-11 21:28] LABS: URINE YEAST FEW /hpf
[2025-09-12] MEDS ORDERED: CEFTRIAXONE SODIUM 2,000 MG VIAL IV STA (00:19)
[2025-09-12] MEDS ORDERED: CEFTRIAXONE SODIUM 2,000 MG VIAL ONE (00:29)
[2025-09-12] MEDS ORDERED: INSULIN REGULAR, HUMAN 1,000 UNIT/10 ML UNITS IV STA (01:46)
[2025-09-12] MEDS ORDERED: KETOROLAC TROMETHAMINE 30 MG VIAL IM STA (05:41)
[2025-09-12] MEDS ORDERED: ORPHENADRINE CITRATE 30 MG/ML AMPUL IM STA (05:42)
[2025-09-12] MEDS ORDERED: ORPHENADRINE CITRATE 30 MG/ML AMPUL ONE (06:12)
[2025-09-12] MEDS ORDERED: KETOROLAC TROMETHAMINE 30 MG VIAL ONE (06:12)
== END 2025-09-12 11:10 | disposition home or self-care (01) ==
LOC: ER 14:56
PROVIDERS: General Practice
DX: E11.65 Type 2 diabetes mellitus with hyperglycemia (principal); N39.0 Urinary tract infection, site not specified; S00.93XA Contusion of unspecified part of head, initial encounter; W18.39XA Other fall on same level, initial encounter; Y93.89 Activity, other specified; Y92.238 Other place in hospital as the place of occurrence of the external cause; Y99.9 Unspecified external cause status
CPT/HCPCS: 36415; 70450; 72125; 73070; 93005; 96365; 96366; 96372; 99284; J0696; J1885; J2360; J2405; J3490

== ENCOUNTER 2025-09-14 11:59 | Inpatient (IN) | payer OTHER ==
[~2025-09-14] VITALS: Ht 162.6 cm; Wt 83.5 kg
[2025-09-14] MEDS ORDERED: FEOSOL325 MG PO (12:47)
[2025-09-14] MEDS ORDERED: RANOLAZINE (12:48)
[2025-09-14] MEDS ORDERED: TIROSINT13 MCG PO (12:48)
[2025-09-14] MEDS ORDERED: COZAAR50 MG PO (12:49)
[2025-09-14] MEDS ORDERED: ZETIA10 MG PO (12:49)
[2025-09-14] MEDS ORDERED: PLAVIX75 MG (12:49)
[2025-09-14] MEDS ORDERED: CITALOPRAM HBR40 MG PO (12:50)
[2025-09-14] MEDS ORDERED: LANTUS SOL100 UNIT/1 (12:50)
[2025-09-14] MEDS ORDERED: ACID REDUCER20 M1 PO (12:50)
[2025-09-14] MEDS ORDERED: CEFTRIAXONE SODIUM 1,000 MG VIAL ONE (12:59)
[2025-09-14] MEDS ORDERED: INSULIN LISPRO 1,000 UNIT/10 ML UNITS SUBCUTANEO PRN (13:00)
[2025-09-14] MEDS ORDERED: DEXTROSE 50 % IN WATER 0.5 G/ML DISP.SYRIN IV PRN (13:00)
[2025-09-14] MEDS ORDERED: RINGERS SOLUTION,LACTATED 1,000 ML IV SCH (13:00)
[2025-09-14 14:53] VITALS: BP 100/60
[2025-09-14 15:29] LABS: BASO % 0.5 % (0.1-1.2); EOS # 0.06 (0.04-0.54); EOS % 1.0 % (0.7-7.0); LYMPH # 2.18 (1.18-3.74); LYMPH % 36.2 % (19.3-53.1); MEAN PLATELET VOLUME 11.20 fl (9.4-12.4); MONO # 0.65 (0.24-0.82); MONO % 10.8 % (4.7-12.5); NEUT # 3.06 (1.56-6.13); NEUT % 50.8 % (34.0-71.1); RED CELL DISTRIBUTION WIDTH 14.9 % (11.6-14.4)
[2025-09-14 15:38] LABS: ERYTHROCYTE SEDIMENTATION RATE 116 mm/hr (0-30)
[2025-09-14 15:53] LABS: ALT/SGPT 19.0 U/L (12-78); AST/SGOT 19.0 U/L (15-37); BILIRUBIN TOTAL 0.36 mg/dL (0.3-1.2); BUN CREA RATIO 10.0 (7.0-25.0); CREATININE SERUM 1.57 mg/dL (0.55-1.02); GFR 31.39; GLOBULINA 4.0 G/DL (2.4-3.5); LDH 163.0 U/L (84-246)
[2025-09-14 15:56] LABS: INR 1.0
[2025-09-14 16:02] LABS: OSMOLALITY SERUM 284.0 MOSM/KG (275-295)
[2025-09-14] MEDS ORDERED: INSULIN REGULAR, HUMAN 1,000 UNIT/10 ML UNITS ONE (16:02)
[2025-09-14 16:04] LABS: GLUCOSE FASTING 528.0 mg/dL (65-100)
[2025-09-14] MEDS ORDERED: INSULIN REGULAR, HUMAN 1,000 UNIT/10 ML UNITS IV ONE (16:15)
[2025-09-14 16:35] LABS: URINE APPEARANCE Cloudy; URINE BILIRRUBIN Negative (NEGATIVE); URINE COLOR Yellow; URINE KETONE Trace (NEGATIVE); URINE LEUKOCYTE Small; URINE NITRATE Negative; URINE PROTEIN 30 (NEGATIVE); URINE UROBILINOGEN 0.2 E.U./dl
[2025-09-14 16:39] LABS: URINE BACTERIA 661.2 uL (0.0-1933); URINE EPITHELIAL CELLS 11.5 uL (0.0-38.8); URINE RBC 3.0 uL (0.0-20.8); URINE WBC 2880.3 uL (0.0-23.2)
[2025-09-14 16:48] LABS: URINE BLOOD Traces; URINE CAST 0.00 uL (0.0-1.40); URINE GLUCOSE >=1000 MG/DL (NEGATIVE)
[2025-09-14 16:58] LABS: COVID-19 AG NEGATIVE (NEGATIVE)
[2025-09-14 18:00] VITALS: BP 154/79
[2025-09-15 02:10] VITALS: BP 169/74; O2SAT 95
[2025-09-15] MEDS ORDERED: LEVOTHYROXINE SODIUM 50 MCG TABLET PO SCH (06:00)
[2025-09-15 06:47] LABS: BUN CREA RATIO 13.0 (7.0-25.0); CREATININE SERUM 1.27 mg/dL (0.55-1.02); GFR 40.09; OSMOLALITY SERUM 285.0 MOSM/KG (275-295)
[2025-09-15 06:48] LABS: GLUCOSE FASTING 387.0 mg/dL (65-100)
[2025-09-15] MEDS ORDERED: PANTOPRAZOLE SODIUM 40 MG TABLET.DR PO SCH (09:00)
[2025-09-15] MEDS ORDERED: ASPIRIN 81 MG TAB.CHEW PO SCH (09:00)
[2025-09-15] MEDS ORDERED: IRON/V.C/V.B12/FOLIC A/VIT. E 1 CAPL CAPLET PO SCH (09:00)
[2025-09-15] MEDS ORDERED: ATORVASTATIN CALCIUM 40 MG TABLET PO SCH (09:00)
[2025-09-15] MEDS ORDERED: LOSARTAN POTASSIUM 50 MG TABLET PO SCH (09:00)
[2025-09-15 09:23] VITALS: BP 120/73
[2025-09-15] MEDS ORDERED: INSULIN GLARGINE,HUM.REC.ANLOG 1,000 UNITS/10 ML UNITS SUBCUTANEO STA (09:39)
[2025-09-15] MEDS ORDERED: INSULIN LISPRO 1,000 UNIT/10 ML UNITS SUBCUTANEO SCH (12:00)
[2025-09-15 17:41] VITALS: BP 147/58
[2025-09-15] MEDS ORDERED: DEXTROSE 50 % IN WATER 0.5 G/ML DISP.SYRIN IV PRN (18:00)
[2025-09-16 03:34] VITALS: BP 123/76; O2SAT 97
[2025-09-16] MEDS ORDERED: INSULIN LISPRO 1,000 UNIT/10 ML UNITS SUBCUTANEO SCH (08:00)
[2025-09-16] MEDS ORDERED: INSULIN GLARGINE,HUM.REC.ANLOG 1,000 UNITS/10 ML UNITS SUBCUTANEO SCH ×2 (09:00)
[2025-09-16 09:45] VITALS: BP 127/75; O2SAT 98
[2025-09-16] MEDS ORDERED: 0.9 % SODIUM CHLORIDE 1,000 ML IV SCH (19:31)
[2025-09-16] MEDS ORDERED: FAMOTIDINE/PF 20 MG/2 ML VIAL IV PUSH STA (19:35)
[2025-09-16] MEDS ORDERED: ONDANSETRON HCL 2 MG/ML VIAL IV STA (19:35)
[2025-09-16] MEDS ORDERED: ONDANSETRON HCL 2 MG/ML VIAL IV PRN (19:45)
[2025-09-16 20:56] VITALS: BP 130/70; O2SAT 97
[2025-09-17 02:39] VITALS: BP 112/58; O2SAT 94
[2025-09-17] MEDS ORDERED: FAMOTIDINE/PF 20 MG/2 ML VIAL IV PUSH SCH (05:00)
[2025-09-17 06:56] LABS: BASO % 0.8 % (0.1-1.2); EOS # 0.16 (0.04-0.54); EOS % 2.5 % (0.7-7.0); LYMPH # 3.02 (1.18-3.74); LYMPH % 47.6 % (19.3-53.1); MEAN PLATELET VOLUME 10.90 fl (9.4-12.4); MONO # 0.86 (0.24-0.82); NEUT # 2.23 (1.56-6.13); NEUT % 35.2 % (34.0-71.1); RED CELL DISTRIBUTION WIDTH 15.1 % (11.6-14.4)
[2025-09-17 07:07] LABS: MONO % 13.6 % (4.7-12.5)
[2025-09-17 07:18] LABS: BUN CREA RATIO 14.0 (7.0-25.0); CREATININE SERUM 1.19 mg/dL (0.55-1.02); GFR 43.21; OSMOLALITY SERUM 282.0 MOSM/KG (275-295)
[2025-09-17 07:19] LABS: GLUCOSE FASTING 313.0 mg/dL (65-100)
[2025-09-17] MEDS ORDERED: INSULIN LISPRO 1,000 UNIT/10 ML UNITS SUBCUTANEO SCH (08:00)
[2025-09-17] MEDS ORDERED: INSULIN GLARGINE,HUM.REC.ANLOG 1,000 UNITS/10 ML UNITS SUBCUTANEO SCH (09:00)
[2025-09-17 09:14] VITALS: BP 96/58; O2SAT 98
[2025-09-17 17:32] VITALS: BP 130/70
[2025-09-18 01:31] VITALS: BP 132/71; O2SAT 96
[2025-09-18 08:57] VITALS: BP 144/95; O2SAT 96
[2025-09-18] MEDS ORDERED: MetFORMIN HCL 1000 MG TABLET PO SCH (09:00)
[2025-09-18 11:06] LABS: T4 TOTAL 4.98 UG/DL (4.8-13.9)
[2025-09-18 11:13] LABS: TSH 6.06 uIU/mL (0.358-3.74)
[2025-09-18 21:33] VITALS: BP 150/72
[2025-09-19 02:02] VITALS: BP 149/71; O2SAT 97
[2025-09-19 09:21] VITALS: BP 158/80; O2SAT 95
[2025-09-20 03:33] VITALS: BP 130/75; O2SAT 96
[2025-09-20] MEDS ORDERED: INSULIN LISPRO 1,000 UNIT/10 ML UNITS SUBCUTANEO SCH (08:00)
[2025-09-20 08:23] VITALS: BP 128/70
[2025-09-20 16:20] VITALS: BP 103/64; O2SAT 98
[2025-09-20] MEDS ORDERED: LIPITOR40 M1 PO (18:07)
[2025-09-20] MEDS ORDERED: ADULT ASPIRIN81 MG PO (18:08)
[2025-09-20] MEDS ORDERED: COZAAR50 MG PO (18:08)
[2025-09-20] MEDS ORDERED: FAMOTIDINE20 MG PO (18:09)
[2025-09-20] MEDS ORDERED: PANTOPRAZOLE SO40 MG PO (18:09)
[2025-09-20] MEDS ORDERED: Ferro-Plex CAPLET PO (18:10)
[2025-09-21] MEDS ORDERED: LEVOTHYROXINE SODIUM 75 MCG TABLET PO SCH (06:00)
== END 2025-09-20 19:51 | disposition home or self-care (01) | DRG 638 ==
LOC: ER 11:59 → SEC-K 13:48 → MEDI 13:48
PROVIDERS: General Practice; Internal Medicine Endocrinology, Diabetes & Metabolism; ADMIT Internal Medicine Hematology & Oncology; ATTEND Internal Medicine Hematology & Oncology
PROC: B345ZZZ Ultrasonography of Bilateral Common Carotid Arteries (ICD-10-PCS; principal; 2025-09-14)
PROC: B348ZZZ Ultrasonography of Bilateral Internal Carotid Arteries (ICD-10-PCS; 2025-09-14)
PROC: B246ZZZ Ultrasonography of Right and Left Heart (ICD-10-PCS; 2025-09-14)
DX: E11.65 Type 2 diabetes mellitus with hyperglycemia (principal); E87.1 Hypo-osmolality and hyponatremia; I25.810 Atherosclerosis of coronary artery bypass graft(s) without angina pectoris; D46.9 Myelodysplastic syndrome, unspecified; E86.0 Dehydration; D50.8 Other iron deficiency anemias; R42 Dizziness and giddiness; I13.10 Hypertensive heart and chronic kidney disease without heart failure, with stage 1 through stage 4 chronic kidney disease, or unspecified chronic kidney disease; E11.22 Type 2 diabetes mellitus with diabetic chronic kidney disease; N18.31 Chronic kidney disease, stage 3a; D63.1 Anemia in chronic kidney disease; F41.0 Panic disorder [episodic paroxysmal anxiety]; E03.9 Hypothyroidism, unspecified; Z79.4 Long term (current) use of insulin; Z79.84 Long term (current) use of oral hypoglycemic drugs; Z95.1 Presence of aortocoronary bypass graft; Z87.891 Personal history of nicotine dependence

== ENCOUNTER 2025-10-20 11:10 | Emergency (ER) | payer OTHER ==
[~2025-10-20] VITALS: Ht 160 cm; Wt 74.4 kg
[~2025-10-20 11:10] MED LIST changes: +ACID REDUCER20 M1 PO; +ADULT ASPIRIN81 MG PO; +CITALOPRAM HBR40 MG PO; +COZAAR50 MG PO; +FAMOTIDINE20 MG PO; +FEOSOL325 MG PO; +Ferro-Plex CAPLET PO; +LANTUS SOL100 UNIT/1; +LIPITOR40 M1 PO; +PANTOPRAZOLE SO40 MG PO; +PLAVIX75 MG; +RANOLAZINE; +TIROSINT13 MCG PO; +ZETIA10 MG PO
[2025-10-20 12:18] VITALS: BP 143/66; O2SAT 99
[2025-10-20] MEDS ORDERED: PLAVIX75 MG PO (12:18)
[2025-10-20] MEDS ORDERED: KETOROLAC TROMETHAMINE 60 MG VIAL IM ONE ×2 (13:00→13:47)
[2025-10-20] MEDS ORDERED: ORPHENADRINE CITRATE 30 MG/ML AMPUL IM ONE (13:00)
[2025-10-20] MEDS ORDERED: ORPHENADRINE CITRATE 30 MG/ML AMPUL ONE (13:47)
[2025-10-20] MEDS ORDERED: NORFLEX100MG PO (14:59)
== END 2025-10-20 15:53 | disposition home or self-care (01) ==
LOC: ER 11:10
DX: M62.838 Other muscle spasm (principal); M54.59 Other low back pain; I10 Essential (primary) hypertension; E03.8 Other specified hypothyroidism; E11.9 Type 2 diabetes mellitus without complications
CPT/HCPCS: 72100; 96372; 99283; J1885; J2360

== ENCOUNTER 2025-10-24 22:10 | Emergency (ER) | payer OTHER ==
[~2025-10-24] VITALS: Ht 160 cm; Wt 76.2 kg
[~2025-10-24 22:10] MED LIST changes: +NORFLEX100MG PO
[2025-10-24 22:38] VITALS: BP 101/63; O2SAT 98
[2025-10-24] MEDS ORDERED: FAMOtidine 10 MG/ML (4ML VIAL) IV ONE (23:00)
[2025-10-24] MEDS ORDERED: 0.9 % SODIUM CHLORIDE 1,000 ML IV ONE (23:00)
[2025-10-25 00:52] LABS: BASO % 0.2 % (0.1-1.2); EOS # 0.02 (0.04-0.54); EOS % 0.1 % (0.7-7.0); LYMPH # 3.08 (1.18-3.74); LYMPH % 20.3 % (19.3-53.1); MEAN PLATELET VOLUME 9.90 fl (9.4-12.4); MONO # 1.33 (0.24-0.82); MONO % 8.8 % (4.7-12.5); NEUT # 10.57 (1.56-6.13); NEUT % 69.8 % (34.0-71.1); RED CELL DISTRIBUTION WIDTH 15.1 % (11.6-14.4)
[2025-10-25] MEDS ORDERED: PIPERACILLIN/TAZOBACTAM SODIUM 3.375 GM VIAL IV SCH (00:59)
[2025-10-25] MEDS ORDERED: DEXTROSE 50 % IN WATER 0.5 G/ML DISP.SYRIN IV PRN (01:00)
[2025-10-25] MEDS ORDERED: INSULIN LISPRO 1,000 UNIT/10 ML UNITS SUBCUTANEO PRN (01:00)
[2025-10-25] MEDS ORDERED: DEXTROSE 50 % IN WATER 0.5 G/ML VIAL IV ONE (01:00)
[2025-10-25 01:09] LABS: INR 1.08
[2025-10-25 02:13] LABS: ALT/SGPT 20.0 U/L (12-78); AST/SGOT 21.0 U/L (15-37); BILIRUBIN TOTAL 0.29 mg/dL (0.3-1.2); BUN CREA RATIO 21.0 (7.0-25.0); CREATININE SERUM 1.49 mg/dL (0.55-1.02); GFR 33.34; GLOBULINA 5.2 G/DL (2.4-3.5); OSMOLALITY SERUM 278.0 MOSM/KG (275-295)
[2025-10-25 02:42] LABS: GLUCOSE FASTING 24.0 mg/dL (65-100)
[2025-10-25 08:19] LABS: BASO % 0.2 % (0.1-1.2); EOS # 0.03 (0.04-0.54); EOS % 0.3 % (0.7-7.0); LYMPH # 3.32 (1.18-3.74); LYMPH % 29.6 % (19.3-53.1); MEAN PLATELET VOLUME 9.80 fl (9.4-12.4); MONO # 0.80 (0.24-0.82); MONO % 7.1 % (4.7-12.5); NEUT # 7.02 (1.56-6.13); NEUT % 62.4 % (34.0-71.1); RED CELL DISTRIBUTION WIDTH 15.3 % (11.6-14.4)
[2025-10-25 08:52] LABS: BUN CREA RATIO 19.0 (7.0-25.0); CREATININE SERUM 1.36 mg/dL (0.55-1.02); GFR 37.04; GLUCOSE FASTING 65.0 mg/dL (65-100); OSMOLALITY SERUM 279.0 MOSM/KG (275-295)
[2025-10-25] MEDS ORDERED: FAMOtidine 10 MG/ML (4ML VIAL) IV SCH (09:00)
== END 2025-10-25 16:51 | disposition home or self-care (01) ==
LOC: ER 22:10
PROVIDERS: General Practice; Internal Medicine
DX: E16.2 Hypoglycemia, unspecified (principal); R53.1 Weakness; I10 Essential (primary) hypertension; E03.8 Other specified hypothyroidism; E11.9 Type 2 diabetes mellitus without complications
CPT/HCPCS: 36415; 70450; 71045; 71250; 82803; 93005; 96365; 96366; 99284; J2543; J3490 ×4; J7030

== ENCOUNTER 2025-10-29 22:25 | Inpatient (IN) | payer OTHER ==
[~2025-10-29] VITALS: Ht 167.6 cm; Wt 81.6 kg
[2025-10-29] MEDS ORDERED: LEVALBUTEROL HCL 1.25 MG/3 ML SOLUTION IH SCH (23:45)
[2025-10-29] MEDS ORDERED: IPRATROPIUM BROMIDE 0.5 MG/2.5 ML AMPUL.NEB IH SCH (23:45)
[2025-10-29] MEDS ORDERED: ONDANSETRON HCL 2 MG/ML VIAL IV STA (23:53)
[2025-10-29] MEDS ORDERED: FAMOTIDINE/PF 20 MG/2 ML VIAL IV PUSH STA (23:53)
[2025-10-29] MEDS ORDERED: SODIUM CHLORIDE 0.45 % 1,000 ML IV STA (23:53)
[2025-10-29] MEDS ORDERED: INSULIN REGULAR, HUMAN 1,000 UNIT/10 ML UNITS IV STA (23:55)
[2025-10-30 00:31] LABS: BASO % 0.3 % (0.1-1.2); EOS # 0.04 (0.04-0.54); EOS % 0.3 % (0.7-7.0); LYMPH # 1.46 (1.18-3.74); LYMPH % 9.3 % (19.3-53.1); MEAN PLATELET VOLUME 9.90 fl (9.4-12.4); MONO # 1.07 (0.24-0.82); MONO % 6.8 % (4.7-12.5); NEUT # 12.98 (1.56-6.13); NEUT % 82.6 % (34.0-71.1); RED CELL DISTRIBUTION WIDTH 15.2 % (11.6-14.4)
[2025-10-30 00:51] LABS: ALT/SGPT 21.0 U/L (12-78); AST/SGOT 22.0 U/L (15-37); BILIRUBIN TOTAL 0.4 mg/dL (0.3-1.2); BUN CREA RATIO 21.0 (7.0-25.0); CREATININE SERUM 1.3 mg/dL (0.55-1.02); GFR 39.02; GLOBULINA 4.6 G/DL (2.4-3.5); OSMOLALITY SERUM 294.0 MOSM/KG (275-295); PHOSPHOKINASE CREATININE 145.0 U/L (26-192)
[2025-10-30 00:57] LABS: GLUCOSE FASTING 444.0 mg/dL (65-100)
[2025-10-30 01:33] LABS: COVID-19 AG NEGATIVE (NEGATIVE)
[2025-10-30] MEDS ORDERED: CEFTRIAXONE SODIUM 2,000 MG VIAL IV STA (04:40)
[2025-10-30] MEDS ORDERED: INSULIN GLARGINE,HUM.REC.ANLOG 1,000 UNITS/10 ML UNITS SUBCUTANEO STA (06:07)
[2025-10-30 06:45] LABS: URINE APPEARANCE Cloudy; URINE BILIRRUBIN Negative (NEGATIVE); URINE BLOOD Trace; URINE COLOR Yellow; URINE KETONE Negative (NEGATIVE); URINE LEUKOCYTE Small; URINE NITRATE Negative; URINE PROTEIN 30 (NEGATIVE); URINE UROBILINOGEN 1.0 E.U./dl
[2025-10-30 06:48] LABS: URINE CAST 2.78 uL (0.0-1.40); URINE EPITHELIAL CELLS 40.4 uL (0.0-38.8); URINE RBC 9.5 uL (0.0-20.8); URINE WBC 896.8 uL (0.0-23.2)
[2025-10-30 06:49] LABS: URINE GLUCOSE >=1000 MG/DL (NEGATIVE)
[2025-10-30] MEDS ORDERED: OSELTAMIVIR PHOSPHATE 75 MG CAPSULE PO ONE (08:30)
[2025-10-30] MEDS ORDERED: 0.9 % SODIUM CHLORIDE 500 ML IV ONE (08:30)
[2025-10-30] MEDS ORDERED: ACETAMINOPHEN 500 MG GEL..CAP PO ONE (09:00)
[2025-10-30] MEDS ORDERED: INSULIN REGULAR, HUMAN 1,000 UNIT/10 ML UNITS IV ONE (11:30)
[2025-10-30 12:41] LABS: BASO % 0.2 % (0.1-1.2); EOS # 0.00 (0.04-0.54); EOS % 0.0 % (0.7-7.0); LYMPH # 1.33 (1.18-3.74); LYMPH % 10.9 % (19.3-53.1); MEAN PLATELET VOLUME 10.40 fl (9.4-12.4); MONO # 1.13 (0.24-0.82); MONO % 9.3 % (4.7-12.5); NEUT # 9.66 (1.56-6.13); NEUT % 79.3 % (34.0-71.1); RED CELL DISTRIBUTION WIDTH 15.3 % (11.6-14.4)
[2025-10-30 13:16] LABS: ALT/SGPT 20.0 U/L (12-78); AST/SGOT 36.0 U/L (15-37); BILIRUBIN TOTAL 0.18 mg/dL (0.3-1.2); BUN CREA RATIO 16.0 (7.0-25.0); CREATININE SERUM 2.0 mg/dL (0.55-1.02); GFR 23.74; GLOBULINA 4.5 G/DL (2.4-3.5)
[2025-10-30 13:32] LABS: OSMOLALITY SERUM 298.0 MOSM/KG (275-295)
[2025-10-30 13:33] LABS: GLUCOSE FASTING 583.0 mg/dL (65-100)
[2025-10-30] MEDS ORDERED: INSULIN REGULAR, HUMAN 100 UNITS in 0.9 % SODIUM CHLORIDE 100 ML IV SCH (14:00)
[2025-10-30] MEDS ORDERED: 0.9 % SODIUM CHLORIDE 1,000 ML IV ONE ×2 (14:00)
[2025-10-30] MEDS ORDERED: 0.9 % SODIUM CHLORIDE 1,000 ML IV SCH (14:00)
[2025-10-30 17:41] LABS: BUN CREA RATIO 19.0 (7.0-25.0); CREATININE SERUM 1.56 mg/dL (0.55-1.02); GFR 31.62; OSMOLALITY SERUM 290.0 MOSM/KG (275-295)
[2025-10-30 17:46] LABS: GLUCOSE FASTING 419.0 mg/dL (65-100)
[2025-10-30] MEDS ORDERED: ATORVASTATIN CALCIUM 40 MG TABLET PO SCH (21:04)
[2025-10-30] MEDS ORDERED: OSELTAMIVIR PHOSPHATE 75 MG CAPSULE PO SCH (21:13)
[2025-10-30 23:00] VITALS: BP 101/52; O2SAT 96
[2025-10-31] MEDS ORDERED: INSULIN LISPRO 1,000 UNIT/10 ML UNITS SUBCUTANEO PRN (02:45)
[2025-10-31] MEDS ORDERED: DEXTROSE 50 % IN WATER 0.5 G/ML DISP.SYRIN IV PRN (02:45)
[2025-10-31 03:00] VITALS: BP 119/52; O2SAT 100
[2025-10-31 05:21] LABS: BASO % 0.3 % (0.1-1.2); EOS # 0.25 (0.04-0.54); EOS % 3.7 % (0.7-7.0); LYMPH # 1.62 (1.18-3.74); LYMPH % 23.9 % (19.3-53.1); MEAN PLATELET VOLUME 10.40 fl (9.4-12.4); MONO # 0.73 (0.24-0.82); MONO % 10.8 % (4.7-12.5); NEUT # 4.13 (1.56-6.13); NEUT % 61.0 % (34.0-71.1); RED CELL DISTRIBUTION WIDTH 15.0 % (11.6-14.4)
[2025-10-31 05:40] LABS: BUN CREA RATIO 21.0 (7.0-25.0); CREATININE SERUM 1.07 mg/dL (0.55-1.02); GFR 48.85; GLUCOSE FASTING 196.0 mg/dL (65-100); OSMOLALITY SERUM 288.0 MOSM/KG (275-295)
[2025-10-31] MEDS ORDERED: PANTOPRAZOLE SODIUM 80 MG in 0.9 % SODIUM CHLORIDE 100 ML IV SCH (05:45)
[2025-10-31 07:28] VITALS: BP 137/58; O2SAT 100
[2025-10-31] MEDS ORDERED: FOLIC ACID 1 MG TABLET PO SCH (09:00)
[2025-10-31] MEDS ORDERED: LOSARTAN POTASSIUM 50 MG TABLET PO SCH (09:00)
[2025-10-31] MEDS ORDERED: FERROUS SULFATE 325 MG TABLET.EC PO SCH (09:00)
[2025-10-31 12:00] VITALS: BP 140/59; O2SAT 100
[2025-10-31] MEDS ORDERED: INSULIN LISPRO 1,000 UNIT/10 ML UNITS SUBCUTANEO SCH (12:00)
[2025-10-31] MEDS ORDERED: LEVALBUTEROL HCL 0.63 MG/3 ML SOLUTION IH SCH (13:00)
[2025-10-31] MEDS ORDERED: INSULIN GLARGINE,HUM.REC.ANLOG 1,000 UNITS/10 ML UNITS SUBCUTANEO SCH (17:00)
[2025-10-31 23:32] VITALS: BP 135/67; O2SAT 100
[2025-11-01] VITALS (15 sets, daily range): BP systolic 105–153; BP diastolic 49–95; O2SAT 99–100
[2025-11-01] MEDS ORDERED: LEVOTHYROXINE SODIUM 75 MCG TABLET PO SCH (06:00)
[2025-11-01] MEDS ORDERED: INSULIN LISPRO 1,000 UNIT/10 ML UNITS SUBCUTANEO SCH (08:00)
[2025-11-01] MEDS ORDERED: OSELTAMIVIR PHOSPHATE 30MG CAP PO SCH (09:00)
[2025-11-01] MEDS ORDERED: INSULIN GLARGINE,HUM.REC.ANLOG 1,000 UNITS/10 ML UNITS SUBCUTANEO SCH (17:00)
[2025-11-02] VITALS (8 sets, daily range): BP systolic 103–127; BP diastolic 57–81; O2SAT 95–100
[2025-11-02 00:08] LABS: ALT/SGPT 22.0 U/L (12-78); AST/SGOT 33.0 U/L (15-37); BILIRUBIN TOTAL 0.39 mg/dL (0.3-1.2); BUN CREA RATIO 13.0 (7.0-25.0); CREATININE SERUM 1.02 mg/dL (0.55-1.02); GFR 51.63; GLOBULINA 3.9 G/DL (2.4-3.5); GLUCOSE FASTING 109.0 mg/dL (65-100); OSMOLALITY SERUM 282.0 MOSM/KG (275-295)
[2025-11-02 00:09] LABS: TSH 6.87 uIU/mL (0.358-3.74)
[2025-11-02] MEDS ORDERED: QUETIAPINE FUMARATE 25 MG TABLET PO STA (06:53)
[2025-11-02 12:13] LABS: BASO % 0.4 % (0.1-1.2); EOS # 0.03 (0.04-0.54); EOS % 0.3 % (0.7-7.0); LYMPH # 2.63 (1.18-3.74); LYMPH % 23.9 % (19.3-53.1); MEAN PLATELET VOLUME 10.20 fl (9.4-12.4); MONO # 1.12 (0.24-0.82); MONO % 10.2 % (4.7-12.5); NEUT # 7.15 (1.56-6.13); NEUT % 64.8 % (34.0-71.1); RED CELL DISTRIBUTION WIDTH 14.6 % (11.6-14.4)
[2025-11-02] MEDS ORDERED: DIPHENHYDRAMINE HCL 50 MG/ML VIAL 1ML IV ONE (17:30)
[2025-11-02] MEDS ORDERED: HALOPERIDOL LACTATE 5 MG/ML AMPUL IM ONE (17:30)
[2025-11-02] MEDS ORDERED: INSULIN GLARGINE,HUM.REC.ANLOG 1,000 UNITS/10 ML UNITS SUBCUTANEO STA (18:57)
[2025-11-02] MEDS ORDERED: DIPHENHYDRAMINE HCL 50 MG/ML VIAL 1ML IV PRN (20:15)
[2025-11-02] MEDS ORDERED: QUETIAPINE FUMARATE 25 MG TABLET PO NR (21:00)
[2025-11-02] MEDS ORDERED: QUETIAPINE FUMARATE 25 MG TABLET PO SCH (21:00)
[2025-11-03 03:20] VITALS: BP 145/77; O2SAT 95
[2025-11-03] MEDS ORDERED: INSULIN LISPRO 1,000 UNIT/10 ML UNITS SUBCUTANEO SCH (08:00)
[2025-11-03] MEDS ORDERED: QUETIAPINE FUMARATE 25 MG TABLET PO SCH (09:00)
[2025-11-03 09:22] VITALS: BP 163/78; O2SAT 99
[2025-11-03 16:00] VITALS: BP 173/94; O2SAT 98
[2025-11-03] MEDS ORDERED: PANTOPRAZOLE SODIUM 40 MG TABLET.DR PO SCH (17:00)
[2025-11-03] MEDS ORDERED: INSULIN GLARGINE,HUM.REC.ANLOG 1,000 UNITS/10 ML UNITS SUBCUTANEO SCH (17:00)
[2025-11-03] MEDS ORDERED: SODIUM CHLORIDE 0.45 % 1,000 ML IV SCH (18:15)
[2025-11-03] MEDS ORDERED: hydrALAZINE HCL 20 MG VIAL IV PRN (18:15)
[2025-11-03 18:49] LABS: BASO % 0.3 % (0.1-1.2); EOS # 0.15 (0.04-0.54); EOS % 1.5 % (0.7-7.0); LYMPH # 2.25 (1.18-3.74); LYMPH % 22.7 % (19.3-53.1); MEAN PLATELET VOLUME 10.30 fl (9.4-12.4); MONO # 0.85 (0.24-0.82); MONO % 8.6 % (4.7-12.5); NEUT # 6.62 (1.56-6.13); NEUT % 66.6 % (34.0-71.1); RED CELL DISTRIBUTION WIDTH 15.3 % (11.6-14.4)
[2025-11-03 19:26] LABS: ALT/SGPT 22.0 U/L (12-78); AST/SGOT 32.0 U/L (15-37); BILIRUBIN TOTAL 0.46 mg/dL (0.3-1.2); BUN CREA RATIO 15.0 (7.0-25.0); CREATININE SERUM 0.98 mg/dL (0.55-1.02); GFR 54.07; GLOBULINA 4.5 G/DL (2.4-3.5); OSMOLALITY SERUM 288.0 MOSM/KG (275-295)
[2025-11-03 19:28] LABS: GLUCOSE FASTING 272.0 mg/dL (65-100)
[2025-11-04 00:30] VITALS: BP 149/83; O2SAT 97
[2025-11-04 06:22] LABS: BASO % 0.3 % (0.1-1.2); EOS # 0.15 (0.04-0.54); EOS % 1.5 % (0.7-7.0); LYMPH # 2.87 (1.18-3.74); LYMPH % 29.0 % (19.3-53.1); MEAN PLATELET VOLUME 10.40 fl (9.4-12.4); MONO # 0.96 (0.24-0.82); MONO % 9.7 % (4.7-12.5); NEUT # 5.86 (1.56-6.13); NEUT % 59.2 % (34.0-71.1); RED CELL DISTRIBUTION WIDTH 15.2 % (11.6-14.4)
[2025-11-04 07:02] LABS: BUN CREA RATIO 18.0 (7.0-25.0); CREATININE SERUM 1.05 mg/dL (0.55-1.02); GFR 49.93; GLUCOSE FASTING 139.0 mg/dL (65-100); OSMOLALITY SERUM 284.0 MOSM/KG (275-295)
[2025-11-04] MEDS ORDERED: INSULIN NPH HUMAN ISOPHANE 1,000 UNITS/10 ML UNITS SUBCUTANEO STA (07:18)
[2025-11-04 08:00] VITALS: BP 126/63; O2SAT 95
[2025-11-04] MEDS ORDERED: MAGNESIUM SULFATE IN WATER 50 ML IV NR (16:00)
[2025-11-04 16:59] VITALS: BP 135/75; O2SAT 98
[2025-11-04] MEDS ORDERED: POTASSIUM CHLORIDE 20MEQ/100ML H2O PB IV NR (17:00)
[2025-11-04] MEDS ORDERED: INSULIN GLARGINE,HUM.REC.ANLOG 1,000 UNITS/10 ML UNITS SUBCUTANEO SCH (17:00)
[2025-11-05 01:08] VITALS: BP 151/76; O2SAT 96
[2025-11-05 07:30] VITALS: BP 124/67; O2SAT 98
[2025-11-05] MEDS ORDERED: PIPERACILLIN/TAZOBACTAM SODIUM 3.375 GM in 0.9 % SODIUM CHLORIDE 100 ML IV SCH (08:25)
[2025-11-05] MEDS ORDERED: INSULIN GLARGINE,HUM.REC.ANLOG 1,000 UNITS/10 ML UNITS SUBCUTANEO SCH ×2 (09:00→17:00)
[2025-11-05 18:22] VITALS: BP 158/68; O2SAT 95
[2025-11-06 00:30] VITALS: BP 147/57; O2SAT 96
[2025-11-06] MEDS ORDERED: LEVOTHYROXINE SODIUM 88 MCG TABLET PO SCH (06:00)
[2025-11-06 08:00] VITALS: BP 153/71; O2SAT 95
[2025-11-06] MEDS ORDERED: LEVOFLOXACIN750 MG PO (12:23)
[2025-11-06] MEDS ORDERED: LIPITOR40 M1 PO (12:24)
[2025-11-06] MEDS ORDERED: FERROUS SULFAT325 M1 PO (12:24)
[2025-11-06] MEDS ORDERED: LEVALBUTER0.63 MG/3 IH (12:24)
[2025-11-06] MEDS ORDERED: INSULIN GL100 UNIT/1 SUBCUTANEO ×2 (12:25→12:26)
[2025-11-06] MEDS ORDERED: MEDROLPACK PO (12:27)
[2025-11-06] MEDS ORDERED: HUMALOG100 UNIT/1 SUBCUTANEO (12:27)
[2025-11-06] MEDS ORDERED: SYMBICORT 16010.2 GM IH (12:28)
[2025-11-06] MEDS ORDERED: LEVOTHYROXINE88 MCG PO (12:28)
[2025-11-06] MEDS ORDERED: FOLIC ACID1 MG PO (12:29)
[2025-11-06] MEDS ORDERED: OSEL75CA PO (12:32)
[2025-11-06] MEDS ORDERED: COZAAR50 MG PO (12:32)
== END 2025-11-06 14:56 | disposition home or self-care (01) | DRG 193 ==
LOC: ER 22:25 → MEDI 10-30 23:22 → ICU-2 10-30 23:22 → SEC-K 10-31 08:05 → ICU-2 10-31 09:08 → MEDJ 10-31 10:57 → ICU-2 10-31 12:00 → SURH 11-02 15:59
PROVIDERS: General Practice; Internal Medicine Nephrology; ADMIT Internal Medicine; ATTEND Internal Medicine
PROC: 4A033R1 Measurement of Arterial Saturation, Peripheral, Percutaneous Approach (ICD-10-PCS; principal; 2025-10-29)
PROC: BW28ZZZ Computerized Tomography (CT Scan) of Head (ICD-10-PCS; 2025-10-29)
PROC: BR20ZZZ Computerized Tomography (CT Scan) of Cervical Spine (ICD-10-PCS; 2025-10-29)
PROC: BB24ZZZ Computerized Tomography (CT Scan) of Bilateral Lungs (ICD-10-PCS; 2025-10-30)
PROC: 8E0ZXY6 Isolation (ICD-10-PCS; 2025-10-31)
PROC: 3E0F7GC Introduction of Other Therapeutic Substance into Respiratory Tract, Via Natural or Artificial Opening (ICD-10-PCS; 2025-10-31)
PROC: 30233N1 Transfusion of Nonautologous Red Blood Cells into Peripheral Vein, Percutaneous Approach (ICD-10-PCS; 2025-10-31)
PROC: 05H933Z Insertion of Infusion Device into Right Brachial Vein, Percutaneous Approach (ICD-10-PCS; 2025-11-01)
PROC: B246ZZZ Ultrasonography of Right and Left Heart (ICD-10-PCS; 2025-11-01)
PROC: BW28ZZZ Computerized Tomography (CT Scan) of Head (ICD-10-PCS; 2025-11-03)
DX: J10.1 Influenza due to other identified influenza virus with other respiratory manifestations (principal); E11.00 Type 2 diabetes mellitus with hyperosmolarity without nonketotic hyperglycemic-hyperosmolar coma (NKHHC); F05 Delirium due to known physiological condition; N17.9 Acute kidney failure, unspecified; Z87.891 Personal history of nicotine dependence; F03.90 Unspecified dementia, unspecified severity, without behavioral disturbance, psychotic disturbance, mood disturbance, and anxiety; N18.31 Chronic kidney disease, stage 3a; D50.8 Other iron deficiency anemias; I25.10 Atherosclerotic heart disease of native coronary artery without angina pectoris; E03.9 Hypothyroidism, unspecified; R53.81 Other malaise; R05.9 Cough, unspecified; R06.00 Dyspnea, unspecified; B95.2 Enterococcus as the cause of diseases classified elsewhere

== ENCOUNTER 2025-11-10 18:26 | Emergency (ER) | payer OTHER ==
[~2025-11-10] VITALS: Ht 162.6 cm; Wt 78.9 kg
[~2025-11-10 18:26] MED LIST changes: +FERROUS SULFAT325 M1 PO; +FOLIC ACID1 MG PO; +HUMALOG100 UNIT/1 SUBCUTANEO; +INSULIN GL100 UNIT/1 SUBCUTANEO; +LEVALBUTER0.63 MG/3 IH; +LEVOFLOXACIN750 MG PO; +LEVOTHYROXINE88 MCG PO; +MEDROLPACK PO; +OSEL75CA PO; +SYMBICORT 16010.2 GM IH
[2025-11-10] MEDS ORDERED: FAMOTIDINE/PF 20 MG/2 ML VIAL IV ONE (20:45)
[2025-11-10] MEDS ORDERED: ACETAMINOPHEN 500 MG GEL..CAP PO ONE ×2 (20:45→21:38)
[2025-11-10] MEDS ORDERED: 0.9 % SODIUM CHLORIDE 1,000 ML IV ONE (20:45)
[2025-11-10] MEDS ORDERED: ONDANSETRON HCL 2 MG/ML VIAL IV ONE (20:45)
[2025-11-10] MEDS ORDERED: ONDANSETRON HCL 2 MG/ML VIAL ONE (21:39)
[2025-11-10] MEDS ORDERED: FAMOTIDINE/PF 20 MG/2 ML VIAL ONE (21:39)
[2025-11-11 02:06] LABS: BASO % 0.1 % (0.1-1.2); EOS # 0.00 (0.04-0.54); EOS % 0.0 % (0.7-7.0); LYMPH # 2.36 (1.18-3.74); LYMPH % 28.6 % (19.3-53.1); MEAN PLATELET VOLUME 10.20 fl (9.4-12.4); MONO # 0.83 (0.24-0.82); MONO % 10.1 % (4.7-12.5); NEUT # 4.98 (1.56-6.13); NEUT % 60.5 % (34.0-71.1); RED CELL DISTRIBUTION WIDTH 14.9 % (11.6-14.4)
[2025-11-11 02:08] LABS: URINE APPEARANCE Turbid; URINE BILIRRUBIN Negative (NEGATIVE); URINE BLOOD NHT; URINE COLOR Yellow; URINE KETONE Trace (NEGATIVE); URINE LEUKOCYTE Moderate; URINE NITRATE Negative; URINE UROBILINOGEN 0.2 E.U./dl
[2025-11-11 02:13] LABS: URINE CAST 1.55 uL (0.0-1.40); URINE RBC 8.0 uL (0.0-20.8); URINE WBC 1953.7 uL (0.0-23.2)
[2025-11-11 02:22] LABS: INR 1.16
[2025-11-11 02:26] LABS: ALT/SGPT 31.0 U/L (12-78); AST/SGOT 32.0 U/L (15-37); BILIRUBIN TOTAL 0.36 mg/dL (0.3-1.2); BILIRUBIN,CONJUGATED 0.18 mg/dL (0.0-0.2); BUN CREA RATIO 21.0 (7.0-25.0); CREATININE SERUM 1.62 mg/dL (0.55-1.02); GFR 30.27; GLOBULINA 5.6 G/DL (2.4-3.5); GLUCOSE FASTING 367.0 mg/dL (65-100); OSMOLALITY SERUM 291.0 MOSM/KG (275-295)
[2025-11-11 03:18] LABS: URINE GLUCOSE 500 MG/DL (NEGATIVE)
[2025-11-11 03:19] LABS: URINE BACTERIA > 9821.5 uL (0.0-1933); URINE EPITHELIAL CELLS 0-4 /HPF; URINE EPITHELIAL CELLS > 201.7 uL (0.0-38.8); URINE PROTEIN 100 (NEGATIVE)
[2025-11-11] MEDS ORDERED: CEFTRIAXONE SODIUM 1,000 MG VIAL IM STA (04:21)
[2025-11-11] MEDS ORDERED: ONDANSETRON HCL 2 MG/ML VIAL IM STA (04:21)
[2025-11-11] MEDS ORDERED: CEFTRIAXONE SODIUM 1,000 MG VIAL ONE (07:28)
[2025-11-11] MEDS ORDERED: INSULIN REGULAR, HUMAN 1,000 UNIT/10 ML UNITS SUBCUTANEO STA (07:39)
[2025-11-11] MEDS ORDERED: ONDANSETRON ODT4 MG PO (07:43)
[2025-11-11] MEDS ORDERED: CEPHALEXIN500 MG PO (07:43)
== END 2025-11-11 09:51 ==
LOC: ER 18:26
PROVIDERS: General Practice
DX: R11.2 Nausea with vomiting, unspecified (principal); N39.0 Urinary tract infection, site not specified; R11.10 Vomiting, unspecified; R51.9 Headache, unspecified; R53.83 Other fatigue; I10 Essential (primary) hypertension; E03.8 Other specified hypothyroidism; E11.9 Type 2 diabetes mellitus without complications; Z79.4 Long term (current) use of insulin
CPT/HCPCS: 36415; 70450; 74176; 96365; 96366; 96372; 99284; J0696; J2405 ×2; J3490; J7030

== ENCOUNTER → 2025-11-15 | Emergency (ER) | payer OTHER ==
[~2025-11-15] MED LIST changes: +CEPHALEXIN500 MG PO; +ONDANSETRON ODT4 MG PO
== END | disposition left against medical advice (07) ==
LOC: ER 11:21
DX: Z53.21 Procedure and treatment not carried out due to patient leaving prior to being seen by health care provider (principal)